=== PATIENT | male | born 1995 | race Caucasian/White ===

== ENCOUNTER 2017-01-04 02:47 | Emergency (ER) | payer SELFPAY ==
[~2017-01-04] VITALS: Ht 172.7 cm; Wt 61.2 kg
[2017-01-04 02:47] VITALS: BP_SYST 112
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
--- NOTE | 2017-01-04 02:50 | NUR ---
ER MD Quach at bedside evaluating the patient
[2017-01-04 02:59] VITALS: BP_SYST 112
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
== END 2017-01-04 02:59 | disposition home or self-care (01) ==
LOC: SED 02:47
DX: Z04.1 Encounter for examination and observation following transport accident (principal); F10.10 Alcohol abuse, uncomplicated
CPT/HCPCS: 99283